=== PATIENT | male | born 1985 | race Caucasian/White ===

== ENCOUNTER 2016-10-22 15:47 | Emergency (ER) | payer OTHER ==
[2016-10-22] MEDS ORDERED: LIDOCAINE 1% MDV 20ML VIAL As Ordered ONE (18:27)
[2016-10-22] MEDS ORDERED: CEPHALEXIN 250 MG CAP As Ordered ONE (18:27)
--- NOTE | 2016-10-22 18:32 | REP ---
Left hand four views : There is no fracture or dislocation. Mineralization and joint spaces are normal. There are no calcifications or foreign bodies. Impression: Negative left hand . Signed by Eusebio Reddy MD 10/22/2016 06:24 P
--- NOTE | 2016-10-22 19:16 | EDDOCDS ---
Nurse's Notes [facility] Name: Noah Hilton Age: 30 yrs Sex: Male : 1985 Arrival Date: 10/22/2016 Time: 15:47 Bed PR Private MD: Other - Complete Info On Cds Diagnosis: Open wound of hand-LEFT Presentation: 10/22 16:00 Presenting complaint: Patient states: accidentally stabbed my hand earlier today. hs1 [employer] sent over to be imaged as they said it should be imaged before sewing shut as swollen area noted to thumb pad. Adult Sepsis Screening: The patient does not have new or worsening altered mentation. Patient's respiratory rate is less than 22. Systolic blood pressure is greater than 100. Patient has a qSOFA score of 0- Negative Sepsis Screen. Suicide/Homicide risk assessment- the patient denies having any suicidal and/or homicidal ideations and does not present with any other emotional, behavioral or mental health complaints. 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 Transition of care: Patient was received from [facility]. 16:00 Acuity: CRISTINA Level 4 hs1 16:00 Method Of Arrival: Walkin/Carried/Asstd hs1 Triage Assessment: 16:02 General: Appears in no apparent distress, Behavior is appropriate for age, cooperative. hs1 Pain: Location: Left first web space Pain currently is 5 out of 10 on a pain scale. Pt Declines HIV testing. Musculoskeletal: Range of motion intact in MCP of left thumb. Historical: - Allergies: No known drug Allergies; - Home Meds: 1. none - PMHx: none; - PSHx: none; - Social history: Smoking status: Chewing Tobacco No barriers to communication noted, The patient speaks fluent Bulgarian, Speaks appropriately for age. - Family history: No immediate family members are acutely ill. - : The pt / caregiver states he / she is not on anticoagulants. Home medication list is obtained from the patient. - Exposure Risk Screening:: None identified. Screenin:13 Screening information is obtained from the patient. Fall risk: No risks identified. nn1 Assistance ADL's: requires no assistance with activities of daily living. Abuse/DV Screen: The patient / caregiver reports he/she is: not in a situation that causes fear, pain or injury. Nutritional screening: No deficits noted. Advance Directives: There is no active DNR order. home support is adequate. Assessment: 19:10 General: Appears in no apparent distress, Behavior is cooperative. Pain: Location: MCP nn1 of left thumb and left hand Pain currently is 3 out of 10 on a pain scale. Neurological: No deficits noted. Respiratory: Airway is patent Respiratory effort is even, unlabored, Respiratory pattern is regular. Derm: Skin is pink, warm & dry. Musculoskeletal: Circulation, motion, and sensation intact Capillary refill < 3 seconds Swelling present in left hand. Injury Description: Puncture Wound closed with 2 sutures by Hugo Caban, provider. No bleeding at this time. Palm of left hand swollen. Vital Signs: 15:49 BP 157 / 85; Pulse 81; Resp 18 S; Temp 98.1(O); Pulse Ox 98% on R/A; Weight 108.86 kg gr2 (R); Height 72 in. (182.88 cm) (R); Pain 6/10; 19:10 BP 135 / 95; Pulse 80; Resp 20; Temp 96.8(T); Pulse Ox 98% on R/A; Pain 3/10; jmv 15:49 Body Mass Index 32.55 (108.86 kg, 182.88 cm) gr2 Vitals: 15:49 Log In Time: October 22, 2016 at 15:49. gr2 ED Course: 15:48 Patient visited by Mitchell Deleon. gr2 15:48 Patient moved to Waiting gr2 15:49 Other - Complete Info On Cds is Private Physician. gr2 15:51 Patient visited by Mitchell Deleon. gr2 15:51 Patient moved to Pre RCE gr2 16:01 Triage Initiated hs1 17:25 Patient moved to Triage 1 dem1 18:02 Michel Caban RPA-C is PHCP. ck7 18:02 Sera Grijalva MD is Attending Physician. ck7 18:02 Patient visited by Michel Caban RPA-C. ck7 18:12 Patient moved to PR2 / 26 mk4 18:13 Patient moved to Radiology dem1 18:27 Patient moved to PR2 / tmb 18:32 Patient visited by Michel Caban RPA-C. ck7 19:02 [facility]. ck7 19:07 Patient visited by Darinel Knott RN. nn1 19:09 Hand, Complete Returned. EDMS 19:11 Patient visited by Alejandro Che PCA. [facility] 19:12 [facility] Payment Agreement was scanned into [employer] and attached to record. zo 19:13 No IV's were initiated during this patient's visit. nn1 19:13 Assist provider with laceration repair using sutures, Performed by Michel Caban nn1 RPA-C Patient tolerated well. 19:14 The patient / caregiver is instructed regarding the plan of care and ED course. nn1 Administered Medications: 18:30 Drug: Cephalexin 500 mg [cephalexin 250 mg/5 mL oral suspension (10 mL)] Route: PO; mlb1 19:14 Drug: Lidocaine 10 ml [lidocaine 10 mg/mL (1 %) injection solution (10 mL)] {Note: by nn1 MANFRED Mares} Route: Infiltration; Order Results: Radiology Order: Hand, Complete Test: Hand, Complete REASON FOR EXAMINATION: Deformity/Swelling; Left hand four views :; ; There is no fracture or dislocation.; ; Mineralization and joint spaces are normal.; ; There are no calcifications or foreign bodies.; ; Impression:; ; Negative left hand .; ; ; Signed by; Eusebio Reddy MD 10/22/2016 06:24 P; Outcome: 19:02 Discharge ordered by Provider. ck7 19:13 Discharge Assessment: Patient awake, alert and oriented x 3. No cognitive and/or nn1 functional deficits noted. Patient verbalized understanding of disposition instructions. The following High Risk Discharge criteria are identified: None. Discharged to home ambulatory. Condition: stable. No special radiology studies were completed. Property :Personal belongings accompany Pt. 19:14 Discharge Assessment: patient administered narcotics - no. nn1 19:15 Patient left the ED. nn1 Signatures: Dispatcher MedHo EDWI Johnna Navarro, FERNY RN Toñito Saba RN RN mlb1 Kunal Ames Hannah, RN RN hs1 James Do Christopher, EDGARDO-C RPA-Cck7 Mitchell Deleon gr2 Kiara Stark RN RN mk4 BiolBishop gleason Nikkole,RN RN nn1 Alejandro Che, DOGMAN/WOMAN DOGMAN/WOMAN jmv Corrections: (The following items were deleted from the chart) 16:30 16:00 Transition of care: patient was not received from another setting of care. hs1 kcs MTDD
--- NOTE | 2016-10-22 19:16 | EDDOCDS ---
Physician Documentation [facility] Name: Noah Hilton Age: 30 yrs Sex: Male : 1985 Arrival Date: 10/22/2016 Time: 15:47 Bed PR Private MD: Other - Complete Info On Cds Disposition: 10/22/16 19:02 Discharged to Home/Self Care. Impression: Open wound of hand - LEFT. - Condition is Stable. - Discharge Instructions: Laceration Care, Adult. - Prescriptions for Keflex 500 mg Oral Capsule - take 1 capsule by ORAL route every 6 hours for 10 days; 40 capsule. - Medication Reconciliation, Local Pharmacy Hours form. - Follow up: Brendan Avery [facility]; When: 1 week; Reason: Staple/Suture removal, Recheck today's complaints, Continuance of care. - Problem is new. - Symptoms have improved. - Notes: WATCH FOR REDNESS, SWELLING, DISCHARGE, IF ANY OF THESE OCCUR, RETURN TO THE ER. USE ANTIBIOTIC INSTRUCTED, FOLLOW UP WITH YOUR DOCTOR IN 10 DAYS FOR SUTURE REMOVAL Historical: - Allergies: No known drug Allergies; - Home Meds: 1. none - PMHx: none; - PSHx: none; - Social history: Smoking status: Chewing Tobacco No barriers to communication noted, The patient speaks fluent Norwegian, Speaks appropriately for age. - Family history: No immediate family members are acutely ill. - : The pt / caregiver states he / she is not on anticoagulants. Home medication list is obtained from the patient. - Exposure Risk Screening:: None identified. Vital Signs: 10/22 15:49 BP 157 / 85; Pulse 81; Resp 18 S; Temp 98.1(O); Pulse Ox 98% on R/A; Weight 108.86 kg / gr2 240 lbs (R); Height 72 in. (182.88 cm) (R); Pain 6/10; 19:10 BP 135 / 95; Pulse 80; Resp 20; Temp 96.8(T); Pulse Ox 98% on R/A; Pain 3/10; jmv 15:49 Body Mass Index 32.55 (108.86 kg, 182.88 cm) gr2 Procedures: 19:01 Laceration repair:. ck7 Laceration: 19:01 Wound Repair of 1.5cm ( 0.6in ) full thickness laceration to Left first web space. ck7 Linear shaped.. Distal neuro/vascular/tendon intact. Anesthesia: Local anesthetic administered with 2 mls of 1% lidocaine. Wound prep: Extensive cleansing with hibiclenz by provider, Wound irrigation with saline by provider, Wound explored extensively. Skin closed with 2 x 4-0 Prolene using Simple interrupted sutures. Dressed with bandaid. Patient tolerated well. MDM: 18:08 Cephalexin Suspension 500 mg PO once ordered. ck7 18:08 Lidocaine 10 mg/mL (1 %) 10 ml Infiltration once; to bedside ordered. ck7 18:09 Hand, Complete Ordered. EDMS 18:49 Financial registration complete. zo 19:12 PENDING S[facility] TO [facility] Payment Agreement was scanned into [employer] and attached to record. zo Administered Medications: 18:30 Drug: Cephalexin 500 mg [cephalexin 250 mg/5 mL oral suspension (10 mL)] Route: PO; mlb1 19:14 Drug: Lidocaine 10 ml [lidocaine 10 mg/mL (1 %) injection solution (10 mL)] {Note: by nnMANFRED Hartmann} Route: Infiltration; Signatures: Dispatcher MedHost EDWV Kunal Ames Hannah, RN RN hs1 Michel Caban, EDGARDO-C RPA-Cck7 Darinel Knott RN RN nn1 Toñito Guerrero RN mlb1 The chart was reviewed and I authenticate all verbal orders and agree with the evaluation and treatment provided.Attachments: 19:12 [facility]END[facility] Payment Agreement zo MTDD
--- NOTE | 2016-10-24 20:17 | EDDOCDS ---
Nurse's Notes [facility] Name: Noah Hilton Age: 30 yrs Sex: Male : 1985 Arrival Date: 10/22/2016 Time: 15:47 Bed PR Private MD: Other - Complete Info On Cds Diagnosis: Open wound of hand-LEFT Presentation: 10/22 16:00 Presenting complaint: Patient states: accidentally stabbed my hand earlier today. hs1 [employer] sent over to be imaged as they said it should be imaged before sewing shut as swollen area noted to thumb pad. Adult Sepsis Screening: The patient does not have new or worsening altered mentation. Patient's respiratory rate is less than 22. Systolic blood pressure is greater than 100. Patient has a qSOFA score of 0- Negative Sepsis Screen. Suicide/Homicide risk assessment- the patient denies having any suicidal and/or homicidal ideations and does not present with any other emotional, behavioral or mental health complaints. 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 Transition of care: [facility] was [facility] from [facility]. 16:00 Acuity: CRISTINA Level 4 hs1 16:00 Method Of Arrival: Walkin/Carried/Asstd hs1 Triage Assessment: 16:02 General: Appears in no apparent distress, Behavior is appropriate for age, cooperative. hs1 Pain: Location: Left first web space Pain currently is 5 out of 10 on a pain scale. Pt Declines HIV testing. Musculoskeletal: Range of motion intact in MCP of left thumb. Historical: - Allergies: No known drug Allergies; - Home Meds: 1. none - PMHx: none; - PSHx: none; - Social history: Smoking status: Chewing Tobacco No barriers to communication noted, The patient speaks fluent Bermudian, Speaks appropriately for age. - Family history: No immediate family members are acutely ill. - : The pt / caregiver states he / she is not on anticoagulants. Home medication list is obtained from the patient. - Exposure Risk Screening:: None identified. Screenin:13 Screening information is obtained from the patient. Fall risk: No risks identified. nn1 Assistance ADL's: requires no assistance with activities of daily living. Abuse/DV Screen: The patient / caregiver reports he/she is: not in a situation that causes fear, pain or injury. Nutritional screening: No deficits noted. Advance Directives: There is no active DNR order. home support is adequate. Assessment: 19:10 General: Appears in no apparent distress, Behavior is cooperative. Pain: Location: MCP nn1 of left thumb and left hand Pain currently is 3 out of 10 on a pain scale. Neurological: No deficits noted. Respiratory: Airway is patent Respiratory effort is even, unlabored, Respiratory pattern is regular. Derm: Skin is pink, warm & dry. Musculoskeletal: Circulation, motion, and sensation intact Capillary refill < 3 seconds Swelling present in left hand. Injury Description: Puncture Wound closed with 2 sutures by Hugo Caban, provider. No bleeding at this time. Palm of left hand swollen. Vital Signs: 15:49 BP 157 / 85; Pulse 81; Resp 18 S; Temp 98.1(O); Pulse Ox 98% on R/A; Weight 108.86 kg gr2 (R); Height 72 in. (182.88 cm) (R); Pain 6/10; 19:10 BP 135 / 95; Pulse 80; Resp 20; Temp 96.8(T); Pulse Ox 98% on R/A; Pain 3/10; jmv 15:49 Body Mass Index 32.55 (108.86 kg, 182.88 cm) gr2 Vitals: 15:49 Log In Time: October 22, 2016 at 15:49. gr2 ED Course: 15:48 Patient visited by Mitchell Deleon. gr2 15:48 Patient moved to Waiting gr2 15:49 Other - Complete Info On Cds is Private Physician. gr2 15:51 Patient visited by Mitchell Deleon. gr2 15:51 Patient moved to Pre RCE gr2 16:01 Triage Initiated hs1 17:25 Patient moved to Triage 1 dem1 18:02 Michel Caban RPA-C is PHCP. ck7 18:02 Sera Grijalva MD is Attending Physician. ck7 18:02 Patient visited by Michel Caban RPA-C. ck7 18:12 Patient moved to PR2 / 26 mk4 18:13 Patient moved to Radiology dem1 18:27 Patient moved to PR2 / tmb 18:32 Patient visited by Michel Caban RPA-C. ck7 19:02 [facility]. ck7 19:07 Patient visited by Darinel Knott RN. nn1 19:09 Hand, Complete Returned. EDMS 19:11 Patient visited by Alejandro Che PCA. jmv 19:12 [facility] Payment Agreement was scanned into [employer] and attached to record. zo 19:13 No IV's were initiated during this patient's visit. nn1 19:13 Assist provider with laceration repair using sutures, Performed by Michel Caban nn1 RPA-C Patient tolerated well. 19:14 The patient / caregiver is instructed regarding the plan of care and ED course. nn1 10/23 11:32 T-Sheet-- Draft Copy was scanned into [employer] and attached to record. gb Administered Medications: 10/22 18:30 Drug: Cephalexin 500 mg [cephalexin 250 mg/5 mL oral suspension (10 mL)] Route: PO; mlb1 19:14 Drug: Lidocaine 10 ml [lidocaine 10 mg/mL (1 %) injection solution (10 mL)] {Note: by nn1 MANFRED Mares .} Route: Infiltration; Order Results: Radiology Order: Hand, Complete Test: Hand, Complete REASON FOR EXAMINATION: Deformity/Swelling; Left hand four views :; ; There is no fracture or dislocation.; ; Mineralization and joint spaces are normal.; ; There are no calcifications or foreign bodies.; ; Impression:; ; Negative left hand .; ; ; Signed by; Eusebio Reddy MD 10/22/2016 06:24 P; Outcome: 19:02 Discharge ordered by Provider. ck7 19:13 Discharge Assessment: Patient awake, alert and oriented x 3. No cognitive and/or nn1 functional deficits noted. Patient verbalized understanding of disposition instructions. The following High Risk Discharge criteria are identified: None. Discharged to home ambulatory. Condition: stable. No special radiology studies were completed. Property :Personal belongings accompany Pt. 19:14 Discharge Assessment: patient administered narcotics - no. nn1 19:15 Patient left the ED. nn1 Signatures: Dispatcher MedHo EDMS Johnna Navarro RN RN Lydia Garza, Reg Reg Toñito Benites RN RN mlb1 Kunal Ames Hannah, RN RN hs1 James Do dem1 Michel Caban, RPA-C RPA-Cck7 Mitchell Deleon gr2 Kiara Stark, RN RN mk4 Bishop Najera Nikkole,RN RN nn1 Alejandro Che, RATE QUOTING OPERATOR RATE QUOTING OPERATOR jmv Corrections: (The following items were deleted from the chart) 16:30 16:00 Transition of care: patient was not received from another setting of care. hs1 kcs Chart Complete MTDD
--- NOTE | 2016-10-24 20:17 | EDDOCDS ---
Physician Documentation [facility] Name: Noah Hilton Age: 30 yrs Sex: Male : 1985 Arrival Date: 10/22/2016 Time: 15:47 Bed PR Private MD: Other - Complete Info On Cds Disposition: 10/22/16 19:02 Discharged to Home/Self Care. Impression: Open wound of hand - LEFT. - Condition is Stable. - Discharge Instructions: Laceration Care, Adult. - Prescriptions for Keflex 500 mg Oral Capsule - take 1 capsule by ORAL route every 6 hours for 10 days; 40 capsule. - Medication Reconciliation, Local Pharmacy Hours form. - Follow up: Brendan Avery [facility]; When: 1 week; Reason: Staple/Suture removal, Recheck today's complaints, Continuance of care. - Problem is new. - Symptoms have improved. - Notes: WATCH FOR REDNESS, SWELLING, DISCHARGE, IF ANY OF THESE OCCUR, RETURN TO THE ER. USE ANTIBIOTIC INSTRUCTED, FOLLOW UP WITH YOUR DOCTOR IN 10 DAYS FOR SUTURE REMOVAL Historical: - Allergies: No known drug Allergies; - Home Meds: 1. none - PMHx: none; - PSHx: none; - Social history: Smoking status: Chewing Tobacco No barriers to communication noted, The patient speaks fluent Dutch, Speaks appropriately for age. - Family history: No immediate family members are acutely ill. - : The pt / caregiver states he / she is not on anticoagulants. Home medication list is obtained from the patient. - Exposure Risk Screening:: None identified. Vital Signs: 10/22 15:49 BP 157 / 85; Pulse 81; Resp 18 S; Temp 98.1(O); Pulse Ox 98% on R/A; Weight 108.86 kg / gr2 240 lbs (R); Height 72 in. (182.88 cm) (R); Pain 6/10; 19:10 BP 135 / 95; Pulse 80; Resp 20; Temp 96.8(T); Pulse Ox 98% on R/A; Pain 3/10; jmv 15:49 Body Mass Index 32.55 (108.86 kg, 182.88 cm) gr2 Procedures: 19:01 Laceration repair:. ck7 Laceration: 19:01 Wound Repair of 1.5cm ( 0.6in ) full thickness laceration to Left first web space. ck7 Linear shaped.. Distal neuro/vascular/tendon intact. Anesthesia: Local anesthetic administered with 2 mls of 1% lidocaine. Wound prep: Extensive cleansing with hibiclenz by provider, Wound irrigation with saline by provider, Wound explored extensively. Skin closed with 2 x 4-0 Prolene using Simple interrupted sutures. Dressed with bandaid. Patient tolerated well. MDM: 18:08 Cephalexin Suspension 500 mg PO once ordered. ck7 18:08 Lidocaine 10 mg/mL (1 %) 10 ml Infiltration once; to bedside ordered. ck7 18:09 Hand, Complete Ordered. EDMS 18:49 Financial registration complete. zo :12 [facility] [place] Agreement was scanned into [employer] and attached to record. zo 10/23 11:32 T-Sheet-- Draft Copy was scanned into [employer] and attached to record. gb Administered Medications: 10/22 18:30 Drug: Cephalexin 500 mg [cephalexin 250 mg/5 mL oral suspension (10 mL)] Route: PO; mlb1 19:14 Drug: Lidocaine 10 ml [lidocaine 10 mg/mL (1 %) injection solution (10 mL)] {Note: by nnMANFRED Hartmann} Route: Infiltration; Signatures: Dispatcher [employer]Host EDPA Lydia Villa, Kunal Cao Hannah, RN RN hs1 Michel Caban, RPA-C RPA-Cck7 Darinel Knott RN RN nn1 Toñito Guerrero RN mlb1 The chart was reviewed and I authenticate all verbal orders and agree with the evaluation and treatment provided.Attachments: 19:12 [facility] Payment Agreement zo 10/23 11:32 T-Sheet-- Draft Copy gb Chart Complete MTDD
--- NOTE | 2016-10-24 20:17 | EDDOCDS ---
Physician Documentation [facility] Name: Noah Hilton Age: 30 yrs Sex: Male : 1985 Arrival Date: 10/22/2016 Time: 15:47 Bed PR Private MD: Other - Complete Info On Cds Disposition: 10/22/16 19:02 Discharged to Home/Self Care. Impression: Open wound of hand - LEFT. - Condition is Stable. - Discharge Instructions: Laceration Care, Adult. - Prescriptions for Keflex 500 mg Oral Capsule - take 1 capsule by ORAL route every 6 hours for 10 days; 40 capsule. - Medication Reconciliation, Local Pharmacy Hours form. - Follow up: Brendan Avery [facility]; When: 1 week; Reason: Staple/Suture removal, Recheck today's complaints, Continuance of care. - Problem is new. - Symptoms have improved. - Notes: WATCH FOR REDNESS, SWELLING, DISCHARGE, IF ANY OF THESE OCCUR, RETURN TO THE ER. USE ANTIBIOTIC INSTRUCTED, FOLLOW UP WITH YOUR DOCTOR IN 10 DAYS FOR SUTURE REMOVAL Historical: - Allergies: No known drug Allergies; - Home Meds: 1. none - PMHx: none; - PSHx: none; - Social history: Smoking status: Chewing Tobacco No barriers to communication noted, The patient speaks fluent Senegalese, Speaks appropriately for age. - Family history: No immediate family members are acutely ill. - : The pt / caregiver states he / she is not on anticoagulants. Home medication list is obtained from the patient. - Exposure Risk Screening:: None identified. Vital Signs: 10/22 15:49 BP 157 / 85; Pulse 81; Resp 18 S; Temp 98.1(O); Pulse Ox 98% on R/A; Weight 108.86 kg / gr2 240 lbs (R); Height 72 in. (182.88 cm) (R); Pain 6/10; 19:10 BP 135 / 95; Pulse 80; Resp 20; Temp 96.8(T); Pulse Ox 98% on R/A; Pain 3/10; jmv 15:49 Body Mass Index 32.55 (108.86 kg, 182.88 cm) gr2 Procedures: 19:01 Laceration repair:. ck7 Laceration: 19:01 Wound Repair of 1.5cm ( 0.6in ) full thickness laceration to Left first web space. ck7 Linear shaped.. Distal neuro/vascular/tendon intact. Anesthesia: Local anesthetic administered with 2 mls of 1% lidocaine. Wound prep: Extensive cleansing with hibiclenz by provider, Wound irrigation with saline by provider, Wound explored extensively. Skin closed with 2 x 4-0 Prolene using Simple interrupted sutures. Dressed with bandaid. Patient tolerated well. MDM: 18:08 Cephalexin Suspension 500 mg PO once ordered. ck7 18:08 Lidocaine 10 mg/mL (1 %) 10 ml Infiltration once; to bedside ordered. ck7 18:09 Hand, Complete Ordered. EDMS 18:49 Financial registration complete. zo :12 [facility] [place] was scanned into [employer] and attached to record. zo 10/23 11:32 T-Sheet-- Draft Copy was scanned into [employer] and attached to record. gb Administered Medications: 10/22 18:30 Drug: Cephalexin 500 mg [cephalexin 250 mg/5 mL oral suspension (10 mL)] Route: PO; mlb1 19:14 Drug: Lidocaine 10 ml [lidocaine 10 mg/mL (1 %) injection solution (10 mL)] {Note: by nnMANFRED Hartmann} Route: Infiltration; Signatures: Dispatcher MedHost EDNV Lydia Villa, Kunal Cao Hannah, RN RN hs1 Michel Caban, RPA-C RPA-Cck7 Darinel Knott RN RN nn1 Toñito Guerrero RN mlb1 The chart was reviewed and I authenticate all verbal orders and agree with the evaluation and treatment provided.Attachments: 19:12 [facility] [place] zo 10/23 11:32 T-Sheet-- Draft Copy gb Chart Complete MTDD
== END 2016-10-22 19:15 | disposition home or self-care (01) ==
LOC: M ED 15:47
DX: S61.412A Laceration without foreign body of left hand, initial encounter (principal); W26.0XXA Contact with knife, initial encounter; Y92.89 Other specified places as the place of occurrence of the external cause; Y93.89 Activity, other specified; Y99.8 Other external cause status; F17.220 Nicotine dependence, chewing tobacco, uncomplicated